=== PATIENT | female | born 2000 | race African-American/Black ===

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

== ENCOUNTER 2019-02-16 14:16 | Emergency (ER) | payer OTHER ==
[2019-02-16 14:27] VITALS: BP 98/80; PULSE 79; TEMP 99.4; BMI 22.3
--- NOTE | 2019-02-16 16:08 | PDOC ---
History of Present Illness - General Chief Complaint: Oral Ulcers Stated Complaint: ALLERGIC REACTION Time Seen by Provider: 02/16/19 15:49 History Source: Patient Exam Limitations: No Limitations - History of Present Illness Initial Comments: 02/16/19 16:03 18 yo F w/ no sig PMHx comes in with mom and nieces c/o 3 days of worsening oral ulcers which started after she was started on Tamiflu for the Flu on Sunday. NO other complaints today. As far as the flu, she feels better, no fever, coughing less, good appetite, mild decrease in solids intake due to pain in the mouth. NO recent travel. NO prior h/o similar symptoms 02/16/19 16:04 Past History - Past Medical History Allergies/Adverse Reactions: Allergies Allergy/AdvReac Type Severity Reaction Status Date / Time No Known Allergies Allergy Verified 02/16/19 14:27 Home Medications: Ambulatory Orders Ferrous Sulfate 325 mg PO BID 10/01/17 Ibuprofen [Children's Ibuprofen] 500 mg PO Q8H 3 Days #1 bottle 02/16/19 Lidocaine 2% Viscous Oral [Xylocaine 2% Viscous Oral -] 5 ml PO TID 3 Days #1 bottle 02/16/19 Mupirocin Ointment [Bactroban 2% Ointment -] 1 applic TP BID 7 Days #1 tube 05/30 Asthma: Yes COPD: No - Reproductive History (#): 1 Para: 0 - Suicide/Smoking/Psychosocial Hx Smoking History: Never smoked Hx Alcohol Use: No Drug/Substance Use Hx: No Substance Use Type: None Review of Systems - Review of Systems Able to Perform ROS?: Yes Constitutional: No: Chills, Fever, Malaise, Night Sweats HEENTM: No: Eye Pain, Recent change in vision, Throat Pain Respiratory: Yes: Cough. No: Shortness of Breath Cardiac (ROS): No: Palpitations, Chest Tightness ABD/GI: No: Diarrhea, Nausea, Vomiting, Abdominal cramping : No: Dysuria, Hematuria Musculoskeletal: No: Back Pain Integumentary: No: Rash Neurological: No: Headache, Numbness, Dizziness Psychiatric: No: Change in Appetite Endocrine: No: Unexplained Weight Loss *Physical Exam - Vital Signs Last Vital Signs Temp Pulse Resp BP Pulse Ox 99.4 F 79 18 98/80 99 02/16/19 14:25 02/16/19 14:25 02/16/19 14:25 02/16/19 14:25 02/16/19 14:25 - Physical Exam General Appearance: Yes: Nourished. No: Apparent Distress HEENT: positive: REED, Normal Voice, Pharyngeal Erythema ( mild), Other ( Diffuse ulcers to upper, lower lips and to the inner mucosa. (+)mild inflammation to the upper lip with mild crusting. (+)1 vesicle to the R posterior pharynx). negative: Pale Conjunctivae, Scleral Icterus (R), Scleral Icterus (L), Tonsillar Exudate, Tonsillar Erythema, Excessive drooling Neck: positive: Supple. negative: Decreased range of motion, Tender midline Respiratory/Chest: positive: Lungs Clear, Normal Breath Sounds. negative: Respiratory Distress, Accessory Muscle Use Cardiovascular: positive: Regular Rhythm, Regular Rate Musculoskeletal: positive: Normal Inspection. negative: CVA Tenderness, Decreased Range of Motion Extremity: positive: Normal Capillary Refill, Normal Inspection, Normal Range of Motion. negative: Tender, Pedal Edema Integumentary: positive: Normal Color, Dry. negative: Jaundice, Rash Neurologic: positive: Fully Oriented, Alert, Normal Mood/Affect Medical Decision Making - Medical Decision Making 02/16/19 20:06 18 yo F w/ oral ulcers, likely from viral infection. She stopped takin Tamiflu 2 days ago and is feeling better, I told her that she does not need to resume unless she wants to. Will give bactroban, viscous lido only to dab a qtip in and apply to lesions. Do not swallow viscous lidocaine. Pt verbalized understanding. Pt is active, playful, non toxic appearing in NAD, tolerating PO. PMF follow up tomorrow Return for worsening/concerning symptoms Pt verbalizes understanding and agrees with plan. *DC/Admit/Observation/Transfer Diagnosis at time of Disposition: Oral ulceration - Discharge Dispostion Disposition: HOME Condition at time of disposition: Stable - Prescriptions Prescriptions: Ibuprofen [Children's Ibuprofen] 500 mg PO Q8H 3 Days #1 bottle Lidocaine 2% Viscous Oral [Xylocaine 2% Viscous Oral -] 5 ml PO TID 3 Days #1 bottle Mupirocin Ointment [Bactroban 2% Ointment -] 1 applic TP BID 7 Days #1 tube - Referrals Referrals: Bruce Lopez [Primary Care Provider] - - Patient Instructions Additional Instructions: Apply lidocaine to the sores qith a Qtip. Please see your coin purse framer in 2 days for reassessment. Rest and drink plenty of fluids. Return for worsening/ concerning symptoms. Thank you - Post Discharge Activity Forms/Work/School Notes: Back to Work
[2019-02-16] MEDS ORDERED: LIDOCAINE VISCOUS 2% ORAL/TOP 20 ML UNIT-DOSE CUP ONE (16:20)
== END 2019-02-16 16:27 | disposition home or self-care (01) ==
LOC: JERFT 14:16
DX: K12.1 Other forms of stomatitis (principal)
CPT/HCPCS: 99281-25